=== PATIENT | male | born 1950 | race African-American/Black ===

== ENCOUNTER → 2017-12-03 08:00 | Outpatient (CLI) | payer MEDICARE, OTHER, SELFPAY ==
--- NOTE | 2017-12-03 08:00 | PROSBIL_PTH ---
PATIENT: CINDY LOVING LOC: [facility] U#:[id number] AGE/SX: 74/M ROOM: RE12/03/[address]: Dr. Joseph Benoit MD : 1950 BED: DIS: SPEC #: [id number] RECD: 12/03/17 15:10 STATUS: IDALIA HANS #: [id number] JERMAN: 12/03/17 08:[address]: Joseph Benoit DEPT: SURGICAL PATHOLOGY RECD BY: Rashad Curtis Tissues: A - PROSTATE RIGHT B - PROSTATE RIGHT C - PROSTATE RIGHT D - PROSTATE LEFT E - PROSTATE LEFT F - PROSTATE LEFT Procedures: PROSTATE BX HEADER OPERATION: Prostate biopsy PRE-OP DIAGNOSIS: Elevated PSA TISSUE SUBMITTED: A - Right apex, B - Right mid, C - Right base, D - Left apex, E - Left mid, F - Left base MICROSCOPIC DIAGNOSIS A. Right prostate, apex, core biopsy: Prostatic tissue, negative for malignancy. Focal chronic inflammation. B. Right prostate, mid, core biopsy: Prostatic tissue, negative for malignancy. C. Right prostate, base, core biopsy: Prostatic adenocarcinoma: Aminta grade: 3+4=7 Number of cores involved: 1 out of 2 Proportion of tissue involved: ~40% Perineural invasion: Present. Greatest tumor length: 0.7 cm, discontinuous Focal chronic inflammation and atrophy. D. Left prostate, apex, core biopsy: Prostatic tissue, negative for malignancy. E. Left prostate, mid, core biopsy: Prostatic tissue, negative for malignancy. Focal chronic inflammation. F. Left prostate, base, core biopsy: Prostatic tissue, negative for malignancy. SJ:fam 12/05/17 MICROSCOPIC DESCRIPTION Slides are reviewed. GROSS DESCRIPTION A - Received is one container designated prostate, right apex. The specimen consists of two elongated fragments of light sims-white soft tissue measuring 0.6 and 1 cm in length and 0.1 cm in diameter. The specimen is totally submitted in one cassette. B - Received is one container designated prostate, right mid. The specimen consists of two elongated fragments of light sims-white soft tissue each measuring 1.2 cm in length and 0.1 cm in diameter. The specimen is totally submitted in one cassette. C - Received is one container designated prostate, right base. The specimen consists of two elongated fragments of light sims-white soft tissue each measuring 1 cm in length and 0.1 cm in diameter. The specimen is totally submitted in one cassette. D - Received is one container designated prostate, left apex. The specimen consists of two elongated fragments of light sims-white soft tissue each measuring 1 cm in length and 0.1 cm in diameter. The specimen is totally submitted in one cassette. E - Received is one container designated prostate, left mid. The specimen consists of four elongated fragments of light sims-white soft tissue measuring 0.5 to 1 cm in length and 0.1 cm in diameter. The specimen is totally submitted in one cassette. F - Received is one container designated prostate, left base. The specimen consists of two elongated fragments of light sims-white soft tissue measuring 1.3 and 1.6 cm in length and 0.1 cm in diameter. The specimen is totally submitted in one cassette. / SJ:rg 12/04/17 TC:0 CPT: G0146
== END ==
PROVIDERS: Visit Provider Urology
DX: R97.20 Elevated prostate specific antigen [PSA] (principal)
CPT/HCPCS: 88305; G0416

== ENCOUNTER → 2017-12-03 15:23 | Outpatient (CLI) | payer MEDICARE, SELFPAY | PROVIDERS: Visit Provider Urology | DX: R97.20 Elevated prostate specific antigen [PSA] (principal) ==

== ENCOUNTER → 2017-12-17 10:25 | Outpatient (CLI) | payer MEDICARE, OTHER, SELFPAY ==
--- NOTE | 2017-12-17 10:32 | NM_ITS ---
CLINICAL: 67-year-old male with reported history of carcinoma of the prostate. WHOLE BODY 99m Tc MDP RADIONUCLIDE BONE SCINTIGRAPHY COMPARISON: None available FINDINGS: Following the intravenous administration of 25.0 mCi of 99m Tc MDP, whole body bone images reveal: 1. Increased radiopharmaceutical concentration is identified in the acromioclavicular and sternoclavicular compartments of both shoulders, sixth thoracic vertebra posteriorly on the right, fifth lumbar vertebra posteriorly on the left and right, bilateral knee articulations, right-left ankles, the right midfoot and bilateral forefoot. 2. The remaining skeletal structures are all for acute below made with a definite scintigraphically unremarkable with normal-appearing renal images and urinary bladder activity identified. Asymmetric increased tracer uptake is noted in the left maxilla most consistent with periodontal disease and/or periostitis. NM/Bone Scan Whole Body IMPRESSION: 1. The increased radiopharmaceutical concentration identified in the bilateral shoulders, thoracic and lumbar spine, right and left knees, ankles bilaterally, the right midfoot and bilateral forefoot is commensurate with degenerative arthritis. 2. There is no definitive typical scintigraphic evidence of skeletal metastatic disease on the current examination. Electronically Signed: Obdulio Tang DO at 20:51 EDT Tel , Service support ,
== END ==
PROVIDERS: Family Provider Preventive Medicine Occupational Medicine; PCP Preventive Medicine Occupational Medicine; Visit Provider Urology
DX: C61 Malignant neoplasm of prostate (principal)
CPT/HCPCS: 78306

== ENCOUNTER → 2018-03-25 14:41 | Outpatient (CLI) | payer MEDICARE, OTHER, SELFPAY ==
[2018-03-25 16:14] LABS: PSA,Total- Diagnostic 6.47 ng/mL (0.0-4.0)
== END ==
PROVIDERS: Family Provider Preventive Medicine Occupational Medicine; PCP Preventive Medicine Occupational Medicine; Referring Provider Urology; Visit Provider Urology
DX: C61 Malignant neoplasm of prostate (principal)
CPT/HCPCS: 36415; 84153

== ENCOUNTER → 2018-03-28 10:58 | Outpatient (CLI) | payer MEDICARE, OTHER, SELFPAY ==
--- NOTE | 2018-03-28 11:44 | MRI_ITS ---
STUDY: MR PELVIS WITH T WITHOUT CONTRAST REASON FOR EXAM: Male, 67 years old. Prostate cancer. Elevated PSA. Positive biopsy TECHNIQUE: Standardized fat and water weighted pulse sequences were obtained in all 3 orthogonal planes, pre-and post contrast administration. 12 ml of Gadavist contrast material was administered intravenously for the contrast portion of the examination. COMPARISON: None. FINDINGS: The prostate measures 6.21 x 5.3 x 6.55 cm with a volume of 107.8 mL. The peripheral zone appears uniformly bright on T2-weighted imaging. There is a small mass on the right measuring approximately 9 x 5 mm which demonstrates markedly high signal on T2-weighted imaging of signal on T2-weighted imaging and bright signal on diffusion-weighted imaging suggesting a cyst. A transition zone is heterogenous on T2 weighted imaging. There are several nodular appearing areas however these demonstrate low signal on diffusion-weighted imaging nidus signal on the ADC imaging there is an area in the left lower prostate which measures approximately 1.4 cm in diameter. This appears low signal on T2-weighted imaging, mild hyperintensity on diffusion-weighted imaging and low signal on ADC, suspicious for malignancy. There is mild trabeculation and thickening of the urinary bladder wall without focal mass or filling defect. Normal visualized small intestine. Normal visualized colon. There is no pelvic fluid. There is no pelvic mass lesion or lymphadenopathy. Normal visualized pelvic arteries. Normal osseous structures. Normal abdominal wall. MRI/Pelvis W/WO Contrast IMPRESSION: PI-RADS 4. Suspicious lesion in the left anterior transitional zone. Electronically Signed: Delfino Osullivan DO at 8:48 EST Tel [phone], Service support ,
[2018-03-28 11:51] LABS: EGFR FINGERSTICK > 60.0000 mL/min (>60)
== END ==
PROVIDERS: Family Provider Preventive Medicine Occupational Medicine; PCP Preventive Medicine Occupational Medicine; Referring Provider Urology; Visit Provider Urology
DX: C61 Malignant neoplasm of prostate (principal)
CPT/HCPCS: 72197; A9585

== ENCOUNTER → 2018-04-19 08:57 | Outpatient (CLI) | payer MEDICARE, OTHER, SELFPAY | PROVIDERS: Family Provider Preventive Medicine Occupational Medicine; PCP Preventive Medicine Occupational Medicine; Referring Provider Urology; Visit Provider Urology | DX: C61 Malignant neoplasm of prostate (principal); R97.20 Elevated prostate specific antigen [PSA]; N40.1 Benign prostatic hyperplasia with lower urinary tract symptoms ==

== ENCOUNTER → 2018-04-19 13:01 | Outpatient (CLI) | payer MEDICARE, OTHER, SELFPAY ==
--- NOTE | 2018-04-19 | IMM_PTH ---
PATIENT: CINDY LOVING LOC: [facility] U#:[id number] AGE/SX: 74/M ROOM: RE04/19/[address]: Dr. Joseph Benoit MD : 1950 BED: DIS: SPEC #: [id number] RECD: 04/22/18 13:44 STATUS: IDALIA REDerek #: [id number] JERMAN: 04/19/18 00:[address]: Joseph Benoit DEPT: IMMUNOHISTOCHEMISTRY RECD BY: Jayshree Wallace ENTERED: 04/22/18 13:45 SP TYPE: IMMUNO OTHR DR: Dr. Jose Stiles DO Tissues: A - PROSTATE RIGHT B - PROSTATE RIGHT Procedures: 34BE12 (add) P40 (add) 34BE12 (initial) PHYSICIAN & INSTITUTION [place] [id number] SPECIMEN INFORMATION: Tissue Source: A - Right prostate, base, core biopsy, B - Right prostate, mid, core biopsy Clinical Info: Malignant neoplasm of prostate, BPH with lower urinary tract symptoms, elevated PSA Specimen Number: [id number] A & B2 CPT code: 15878, 43235 x3 METHODOLOGY: Deparaffinized sections of prefer/formalin-fixed tissue or PAP/DQ stained slides are incubated with monoclonal/polyclonal antibodies/oligonucleotide probes. Localization is made via biotin free immunoperoxidase method. Appropriate controls are performed and reacted as expected. Results on target cell population are indicated in the following table: RESULTS: ANTIBODY / CLONE RESULT Block A P40 (BC28) negative 34BE12 (34BE12) negative Block B2 P40 (BC28) negative 34BE12 (34BE12) negative These tests were developed and their performance characteristics determined by [facility]. They may not have been cleared or approved by the U.S. Food and Drug Administration. The FDA has determined that such clearance or approval is not necessary. INTERPRETATION: A. Right prostate, base, core biopsy: Adenocarcinoma. B. Right prostate, mid, core biopsy: Adenocarcinoma. SUMMER:fam 04/23/18
--- NOTE | 2018-04-19 10:40 | PROSBIL_PTH ---
PATIENT: CINDY LOVING LOC: [facility] U#:[id number] AGE/SX: 74/M ROOM: RE04/19/[address]: Dr. Joseph Benoit MD : 1950 BED: DIS: SPEC #: [id number] RECD: 04/19/18 12:06 STATUS: IDALIA HANS #: [id number] JEMRAN: 04/19/18 10:[address]: Joseph Benoit DEPT: SURGICAL PATHOLOGY RECD BY: Jayshree Wallace ENTERED: 04/22/18 10:44 SP TYPE: PROST BX JAGRUTI DR: Dr. Jose Stiles, [facility] Tissues: A - PROSTATE RIGHT B - PROSTATE RIGHT C - PROSTATE RIGHT D - PROSTATE LEFT E - PROSTATE LEFT F - PROSTATE LEFT Procedures: PROSTATE BX HEADER OPERATION: Transrectal ultrasound-guided prostate biopsy, saturated PRE-OP DIAGNOSIS: Malignant neoplasm of prostate, BPH with lower urinary tract symptoms, elevated PSA TISSUE SUBMITTED: A - Right base, B - Right mid, C - Right apex, D - Left base, E - Left mid, F - Left apex MICROSCOPIC DIAGNOSIS A. Right prostate, base, core biopsy: Prostatic adenocarcinoma: Aminta grade: 3+3=6 Number of cores involved: 2 out of 2 Proportion of tissue involved: 10-15% Perineural invasion: Not identified. Greatest tumor length: 0.2 cm See comment. B. Right prostate, mid, core biopsy: Prostatic adenocarcinoma: [place] grade: 3+3=6 Number of cores involved: 2 out of 4 Proportion of tissue involved: ~10% Perineural invasion: Present. Greatest tumor length: 0.4 cm See comment. C. Right prostate, apex, core biopsy: Prostatic tissue, negative for malignancy. D. Left prostate, base, core biopsy: Prostatic tissue, negative for malignancy. E. Left prostate, mid, core biopsy: Prostatic tissue, negative for malignancy. F. Left prostate, apex, core biopsy: Prostatic tissue, negative for malignancy. SJ:fam 04/22/18 COMMENT A & B. Immunohistochemistry ([id number]) supports the above diagnosis. Please make reference to previous specimen ([id number]) right prostate, base, core biopsy with diagnosis of prostatic adenocarcinoma. Case has been reviewed in consultation with Dr. España who concurs with the above diagnosis. IDC:AM MICROSCOPIC DESCRIPTION Slides are reviewed. GROSS DESCRIPTION A - Received is one container designated prostate, right base. The specimen consists of two elongated fragments of light sims-white soft tissue measuring 1.5 and 2 cm in length and 0.1 cm in diameter. The specimen is totally submitted in one cassette. B - Received is one container designated prostate, right mid. The specimen consists of four elongated fragments of light sims-white soft tissue measuring 1.5 to 2 cm in length and 0.1 cm in diameter. The specimen is totally submitted in two cassettes. C - Received is one container designated prostate, right apex. The specimen consists of two elongated fragments of light sims-white soft tissue each measuring 1.5 cm in length and 0.1 cm in diameter. The specimen is totally submitted in one cassette. D - Received is one container designated prostate, left base. The specimen consists of two elongated fragments of light sims-white soft tissue measuring 0.5 and 1.5 cm in length and 0.1 cm in diameter. The specimen is totally submitted in one cassette. E - Received is one container designated prostate, left mid. The specimen consists of four elongated fragments of light sims-white soft tissue measuring 1.5 to 2 cm in length and 0.1 cm in diameter. The specimen is totally submitted in two cassettes. F - Received is one container designated prostate, left apex. The specimen consists of two elongated fragments of light sims-white soft tissue each measuring 1.5 cm in length and 0.1 cm in diameter. The specimen is totally submitted in one cassette. / SUMMER:fam 04/19/18 TC:0 CPT: G0146 ADDENDUM ADDENDUM ADDENDUM ADDENDUM ADDENDUM ADDENDUM ADDENDUM ADDENDUM 05/08/2018 09:59 ADDENDUM 05/08/2018 09:59 ADDENDUM 05/08/2018 09:59 ADDENDUM 05/08/2018 09:59 ADDENDUM 05/08/2018 09:59 An order for Oncotype testing was received from Dr. Benoit. This necessitated case review, block and slide selection by pathologist at [facility]. Genomic Prostate Score = 40 Results of the complete Oncotype testing ([employer] report) are viewable in EMR under: Reports - Pathology - Lab Pathology Report, Scanned.
== END ==
PROVIDERS: Family Provider Preventive Medicine Occupational Medicine; PCP Preventive Medicine Occupational Medicine; Referring Provider Urology; Visit Provider Urology
DX: C61 Malignant neoplasm of prostate (principal); R97.20 Elevated prostate specific antigen [PSA]; N40.1 Benign prostatic hyperplasia with lower urinary tract symptoms
CPT/HCPCS: 88305; 88341; 88342; G0416

== ENCOUNTER 2020-07-27 15:49 | Outpatient (RCR) | payer MEDICARE, OTHER, SELFPAY ==
[2020-07-27] MEDS: COVID-19 VACC, MRNA(PFIZER)/PF 30 MCG/0.3 ML SYRINGE IM (10:41)
[2020-08-17] MEDS: COVID-19 VACC, MRNA(PFIZER)/PF 30 MCG/0.3 ML SYRINGE IM (10:56)
== END 2020-10-19 23:59 ==
LOC: IMMUN 15:49
PROVIDERS: PCP Preventive Medicine Occupational Medicine; Visit Provider Family Medicine
DX: Z23 Encounter for immunization (principal)
CPT/HCPCS: 0001A; 0002A; 91300